=== PATIENT | female | born 1965 | race Caucasian/White ===

== ENCOUNTER 2018-03-13 02:25 | Emergency (ER) | payer SELFPAY ==
[2018-03-13 02:27] VITALS: BP 140/103
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
== END 2018-03-13 02:50 ==
LOC: ER 02:35
DX: F10.920 Alcohol use, unspecified with intoxication, uncomplicated (principal)
CPT/HCPCS: 99281